=== PATIENT | female | born 1955 | race Caucasian/White ===

== ENCOUNTER 2017-03-14 09:26 | Outpatient (RCR) | payer BC ==
[2017-03-14 10:34] LABS: BASOPHILS % (AUTO) 1 % (0-10); EOSINOPHILS # (AUTO) 0.1 10^3/uL (0.0-0.3); EOSINOPHILS % (AUTO) 3 % (0-10); HEMATOCRIT 42 % (35-52); HEMOGLOBIN 14.6 G/DL (11.5-16.0); LYMPHOCYTES % (AUTO) 26 % (12-44); MEAN CORPUSCULAR HEMOGLOBIN 32 PG (25-34); MEAN CORPUSCULAR HGB CONC 34 G/DL (32-36); MEAN CORPUSCULAR VOLUME 92 FL (80-99); MEAN PLATELET VOLUME 10.6 FL (7.4-10.4); MONOCYTES # (AUTO) 0.3 X 10^3 (0.0-1.0); MONOCYTES % (AUTO) 7 % (0-12); NEUTROPHILS # (AUTO) 2.5 X 10^3 (1.8-7.8); NEUTROPHILS % (AUTO) 64 % (42-75); PLATELET COUNT 142 10^3/uL (130-400); RED BLOOD COUNT 4.61 10^6/uL (4.35-5.85)
[2017-03-14 10:53] LABS: BILIRUBIN,TOTAL 0.4 MG/DL (0.1-1.0); CALCIUM 9.3 MG/DL (8.5-10.1); CREATININE SERUM 1.11 MG/DL (0.60-1.30); POTASSIUM 4.9 MMOL/L (3.6-5.0); TOTAL PROTEIN 7.2 GM/DL (6.4-8.2)
== END 2017-06-12 | disposition home or self-care (01) ==
LOC: ONC 09:26
PROVIDERS: ATTEND Internal Medicine Hematology & Oncology
DX: D69.6 Thrombocytopenia, unspecified (principal); I10 Essential (primary) hypertension; E78.00 Pure hypercholesterolemia, unspecified; Z85.850 Personal history of malignant neoplasm of thyroid; Z80.0 Family history of malignant neoplasm of digestive organs; Z80.3 Family history of malignant neoplasm of breast; Z79.899 Other long term (current) drug therapy
CPT/HCPCS: 80053; 83615; 84155; 84165; 85025; 99214

== ENCOUNTER 2018-01-23 08:12 | Outpatient (RCR) | payer BC | END 2018-03-07 | disposition home or self-care (01) | LOC: CR 08:12 | PROVIDERS: ATTEND Internal Medicine Cardiovascular Disease | DX: Z48.812 Encounter for surgical aftercare following surgery on the circulatory system (principal); Z95.5 Presence of coronary angioplasty implant and graft | CPT/HCPCS: 93798 ==

== ENCOUNTER 2020-11-26 12:52 | Outpatient (CLI) | payer BC ==
[~2020-11-26] VITALS: Ht 170.2 cm; Wt 108.9 kg
[2020-11-26] MEDS ORDERED: CLOP75TA69 PO (14:15)
[2020-11-26] MEDS ORDERED: LOSA25TA41 PO (14:16)
[2020-11-26] MEDS ORDERED: ATOR80TA76 PO (14:16)
[2020-11-26] MEDS ORDERED: METO50TA7 PO (14:17)
[2020-11-26] MEDS ORDERED: SPIR25TA5 PO (14:18)
[2020-11-26] MEDS ORDERED: CALC-794 PO (14:18)
== END 2020-11-26 14:52 ==
LOC: PREOP 12:52
PROVIDERS: ATTEND Surgery
DX: Z01.818 Encounter for other preprocedural examination (principal)

== ENCOUNTER 2020-12-08 06:58 | Day surgery (SDC) | payer BC ==
[~2020-12-08] VITALS: Ht 170.2 cm; Wt 108.9 kg
[~2020-12-08 06:58] MED LIST: ATOR80TA76 PO; CALC-794 PO; CLOP75TA69 PO; LOSA25TA41 PO; METO50TA7 PO; SPIR25TA5 PO
[2020-12-08] MEDS ORDERED: LACTATED RINGERS 1,000 ML IV STA (07:01)
[2020-12-08] MEDS ORDERED: PROPOFOL INJECTION 50 ML IV ONE (07:25)
[2020-12-08] MEDS ORDERED: MIDAZOLAM 2 MG/2 ML (VERSED) VIAL ONE (07:25)
[2020-12-08 07:33] VITALS: BP 132/69
--- NOTE | 2020-12-08 08:18 | Progress Note-Pre Operative ---
Pre-Operative Progress Note H&P Reviewed The H&P was reviewed, patient examined and no changes noted. Time Seen by Provider: 08:15 Date H&P Reviewed: Dec 08, 2020 Time H&P Reviewed: 08:15 Pre-Operative Diagnosis: Hx of Colon polyps MIGNON PEREZ DO Dec 08, 2020 08:18
[2020-12-08] MEDS ORDERED: ATROPINE INJ 0.4 MG/ML SDV ONE (08:32)
[2020-12-08 08:48] VITALS: BP 112/63
[2020-12-08 08:50] VITALS: BP 112/62
--- NOTE | 2020-12-08 08:50 | Progress Note-Post Operative ---
Post-Operative Progess Note Surgeon (s)/Oven Unloader (s) Surgeon MIGNON PEREZ DO Oven Unloader: CLAUDIA Hagan Pre-Operative Diagnosis Hx of Colon polyps Post-Operative Diagnosis Diverticula int hemorrhoids Procedure & Operative Findings Date of Procedure 12/08/20 Procedure Performed/Findings Colonoscopy PROCEDURE NOTE: After informed consent was obtained, the patient was brought to the endoscopy suite, placed in bed in left lateral decubitus position. She was administered IV sedation by the ASSISTANT PROFESSOR NURSE EDUCATION who then monitored her vitals the entire time, heart rate, blood pressure and pulse ox and the scope was inserted, pushed all the way to about 140 cm and pushed into the cecum, took a picture of appendiceal orifice and then able to get into the terminal ileum and took a picture. Started to slowly slowly withdrew the scope insufflating to look circumferentially at the andrade; from the cecum, up the ascending colon to the hepatic flexure, then down the transverse colon tothe splenic flexure. Into the descending colon (where I saw the beginnings of some diverticula) and down into the sigmoid and then into the rectal vault; retroflexed the scope. Took picture of small internal hemorrhoids. The patient tolerated the procedure. She was recovered in endoscopy suite. Anesthesia Type IV sedation by ASSISTANT PROFESSOR NURSE EDUCATION Estimated Blood Loss Estimated blood loss (mL): none Specimens/Packing Specimens Removed none MIGNON PEREZ DO Dec 08, 2020 08:50
--- NOTE | 2020-12-08 08:51 | Endoscopy Discharge Instruct ---
Endo Procedure/Findings Findings 1.: Diverticulosis 2.: Internal Hemorrhoids Discharge Instructions - Activity: You might feel a little sleepy until tomorrow. This is due to the medicine you received to relax you. Until tomorrow, you should: NOT drive a car, operate machinery or power tools. NOT drink any alcoholic beverages. NOT make any important decisions or sign importortant papers. Do not return to work until tomorrow, unless otherwise instructed. Resume previous activities tomorrow. Diet: Start by taking liquids. If you tolerate liquids, advance to solid food. 1.: Colonscopy in 10 years Notify Physician - If you experience excessive bleeding, unusual abdominal pain, fever, or chest pain, contact your doctor immediately. MIGNON PEREZ DO Dec 08, 2020 08:51
[2020-12-08] MEDS ORDERED: HURRICAINE EXT TUBE (BENZOCAINE) ONE (08:54)
[2020-12-08 09:10] VITALS: BP 103/66
--- NOTE | 2020-12-08 13:19 | Anesthesia-General Post-Op ---
MAC Patient Condition Mental Status/LOC: Same as Preop Cardiovascular: Satisfactory Nausea/Vomiting: Absent Respiratory: Satisfactory Pain: Controlled Complications: Absent Post Op Complications Complications None Follow Up Care/Instructions Patient Instructions None needed. Anesthesiology Discharge Order Discharge Order Patient is doing well, no complaints, stable vital signs, no apparent adverse anesthesia problems. No complications reported per nursing. ENEDINA FERNANDEZ CRNA Dec 08, 2020 13:19
== END 2020-12-08 09:14 | disposition home or self-care (01) ==
LOC: ENDO 06:58
PROVIDERS: ATTEND Surgery
DX: K57.30 Diverticulosis of large intestine without perforation or abscess without bleeding (principal); K64.8 Other hemorrhoids; I10 Essential (primary) hypertension; I25.2 Old myocardial infarction; I25.10 Atherosclerotic heart disease of native coronary artery without angina pectoris; E78.5 Hyperlipidemia, unspecified; E66.9 Obesity, unspecified; Z86.010 Personal history of colon polyps; Z79.02 Long term (current) use of antithrombotics/antiplatelets; Z79.899 Other long term (current) drug therapy; Z95.1 Presence of aortocoronary bypass graft; Z68.37 Body mass index [BMI] 37.0-37.9, adult; Z79.890 Hormone replacement therapy; Z90.49 Acquired absence of other specified parts of digestive tract; Z90.710 Acquired absence of both cervix and uterus; Z90.89 Acquired absence of other organs